=== PATIENT | female | born 2000 | race African-American/Black ===

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

== ENCOUNTER 2019-11-21 23:51 | Emergency (ER) | payer BC, OTHER ==
[~2019-11-21] VITALS: Ht 170.2 cm; Wt 54.5 kg
[2019-11-22 00:01] VITALS: BP 132/65
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
== END 2019-11-22 01:16 | disposition home or self-care (01) ==
LOC: ER 23:51
DX: G89.11 Acute pain due to trauma (principal); R68.84 Jaw pain; R51 Headache; J45.909 Unspecified asthma, uncomplicated; Z88.5 Allergy status to narcotic agent; Y08.89XA Assault by other specified means, initial encounter; Y93.89 Activity, other specified; Y92.89 Other specified places as the place of occurrence of the external cause; Y99.8 Other external cause status
CPT/HCPCS: 99281; 99282